=== PATIENT | female | born 1990 | race Caucasian/White ===

== ENCOUNTER 2016-08-03 19:25 | Emergency (ER) | payer MEDICAID ==
[2016-08-03 19:50] LABS: APPEARANCE HAZY (CLEAR); BILIRUBIN NEGATIVE (NEGATIVE); COLOR YELLOW (YELLOW); GLUCOSE NEGATIVE (NEGATIVE); KETONE NEGATIVE (NEGATIVE); LEUKOCYTE ESTERASE NEGATIVE (NEGATIVE); NITRITE NEGATIVE (NEGATIVE); PROTEIN NEGATIVE (NEGATIVE); SPECIFIC GRAVITY 1.015 (1.005-1.020); UROBILINOGEN NORMAL (NORMAL)
== END 2016-08-03 21:49 | disposition home or self-care (01) ==
LOC: D.ER 19:25
PROVIDERS: Emergency Medicine
DX: S39.012A Strain of muscle, fascia and tendon of lower back, initial encounter (principal); X58.XXXA Exposure to other specified factors, initial encounter; Y93.89 Activity, other specified; Y92.019 Unspecified place in single-family (private) house as the place of occurrence of the external cause; M54.5 Low back pain

== ENCOUNTER 2016-08-31 12:58 | Emergency (ER) | payer MEDICAID | END 2016-08-31 15:35 | disposition home or self-care (01) | LOC: D.ER 12:58 | DX: S93.401A Sprain of unspecified ligament of right ankle, initial encounter (principal); X58.XXXA Exposure to other specified factors, initial encounter; Y93.89 Activity, other specified; Y92.89 Other specified places as the place of occurrence of the external cause ==

== ENCOUNTER 2016-10-08 13:07 | Emergency (ER) | payer MEDICAID | END 2016-10-08 14:55 | disposition home or self-care (01) | LOC: D.ER 13:07 | DX: M25.561 Pain in right knee (principal); M25.571 Pain in right ankle and joints of right foot; W19.XXXA Unspecified fall, initial encounter ==

== ENCOUNTER 2016-11-03 16:45 | Emergency (ER) | payer MEDICAID | END 2016-11-03 19:10 | disposition home or self-care (01) | LOC: D.ER 16:45 | DX: R07.89 Other chest pain (principal); S20.211A Contusion of right front wall of thorax, initial encounter; W03.XXXA Other fall on same level due to collision with another person, initial encounter; Y93.89 Activity, other specified; Y92.828 Other wilderness area as the place of occurrence of the external cause ==

== ENCOUNTER 2016-11-08 17:34 | Emergency (ER) | payer MEDICAID | END 2016-11-08 19:44 | disposition home or self-care (01) | LOC: D.ER 17:34 | DX: S20.211A Contusion of right front wall of thorax, initial encounter (principal); S70.01XA Contusion of right hip, initial encounter; W19.XXXA Unspecified fall, initial encounter; Y92.828 Other wilderness area as the place of occurrence of the external cause ==